=== PATIENT | male | born 1995 | race Caucasian/White ===

== ENCOUNTER 2020-08-15 14:42 | Emergency (ER) | payer MEDICAID ==
[~2020-08-15] VITALS: Ht 167.6 cm; Wt 63.5 kg
[2020-08-15 14:49] VITALS: BP 114/70
--- NOTE | 2020-08-15 14:50 | NUR ---
came in for right shoulder pain since last night 10/10 pain scale, denies injury or trauma, to ER bed 9, hooked to compliance monitor, BP cuff and POX, changed to hosp gown, warm blanket provided, patient AAO x 4, breathing even and unlabored, NAD noted. awaiting MD yoder.
--- NOTE | 2020-08-15 15:00 | NUR ---
DR THOMPSON AT BEDSIDE
== END 2020-08-15 16:19 | disposition home or self-care (01) ==
LOC: ER 14:46
DX: S13.4XXA Sprain of ligaments of cervical spine, initial encounter (principal); S40.011A Contusion of right shoulder, initial encounter; Z88.1 Allergy status to other antibiotic agents; W07.XXXA Fall from chair, initial encounter; Y93.89 Activity, other specified; Y92.89 Other specified places as the place of occurrence of the external cause; Y99.8 Other external cause status
CPT/HCPCS: 72040-TC; 73030-TC